=== PATIENT | male | born 1985 | race Caucasian/White ===

== ENCOUNTER 2018-05-08 11:41 | Outpatient (CLI) | payer OTHER ==
--- NOTE | 2018-05-08 14:16 | RAD ---
TWO VIEWS OF THE CHEST: COMPARISON: None. HISTORY: Cough for several days. FINDINGS: Two views of the chest show normal sized cardiomediastinal silhouette. There is no evidence of consol idation, mass, or pleural effusion. The bones are unremarkable. IMPRESSION: No evidence of acute cardiopulmonary disease. POS: [facility]
== END 2018-05-08 11:42 | disposition home or self-care (01) ==
LOC: MADRAD 11:41
DX: R04.2 Hemoptysis (principal); Z77.098 Contact with and (suspected) exposure to other hazardous, chiefly nonmedicinal, chemicals
CPT/HCPCS: 71046